=== PATIENT | female | born 1980 | race Caucasian/White ===

== ENCOUNTER 2020-06-11 22:17 | Emergency (ER) | payer OTHER ==
[~2020-06-11] VITALS: Ht 175.3 cm; Wt 113.4 kg
[~2020-06-11 22:17] MED LIST: AZELASTINE137 MCG/0. INH; LEVAQUIN500 MG PO; NORCO 7.5-3251 EACH PO; RHINOCORT AQUA INH; SINGULAIR10 MG PO; ZANTAC150 MG PO
--- OUTSIDE RECORDS SUMMARY | 2020-06-11 22:21 | XMS REPORT | Continuity of Care Document ---
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 6.4-8.2 N ALBUMIN (test code = ALB) 3.7 g/dL 3.4-5.0 N GLOBULIN (test code = GLOB) 4.5 gram/dL 2.7-4.2 H ALBUMIN/GLOBULIN RATIO (test code = A/G) 0.8 0.75-1.50 N CALCIUM (test code = CA) 9.0 mg/dL 8.5-10.1 N BILIRUBIN TOTAL (test code = BILT) 0.30 mg/dL 0.0-1.0 N SGOT/AST (test code = AST) 27 IUnit/L 15-37 N SGPT/ALT (test code = ALT) 39 IUnit/L 12-78 N ALKALINE PHOSPHATASE TOTAL (test code = ALKP) 85 IUnit/L 45-117 N Note change in reference range due to change in reagent. HCG SERUM [id number] 14:01:00* Test Item Value Reference Range Interpretation Comments HCG SERUM QUAL (test code = HCGQL) NEGATIVE NEGATIVE This HCGQL test is NOT applicable for MALE patients.Check with nurse about probable order error.If Tumor Marker Test needed, nurse should order test "HCGTU"(Test #550.05903) URINALYSIS [id number] 13:52:00* Test Item Value Reference Range Interpretation Comments UA COLOR (test code = COLU) YELLOW YELLOW UA APPEARANCE (test code = APPU) CLEAR CLEAR UA GLUCOSE DIPSTICK (test code = DGLUU) NEGATIVE mg/dL NEGATIVE UA BILIRUBIN DIPSTICK (test code = BILU) NEGATIVE mg/dL NEGATIVE UA KETONE DIPSTICK (test code = KETU) NEGATIVE mg/dL NEGATIVE UA SPECIFIC GRAVITY (test code = SGU) 1.025 1.001-1.035 UA BLOOD DIPSTICK (test code = REBA) 0.03 mg/dL (Trace) mg/dL NEGATI VE A UA PH DIPSTICK (test code = NILA) 5.0 5.0-8.0 UA PROTEIN DIPSTICK (test code = PROU) NEGATIVE mg/dL NEGATIVE UA UROBILINIOGEN DIPSTICK (test code = URO) Normal mg/dL NEGATIVE UA NITRITE DIPSTICK (test code = STEPHEN) NEGATIVE NEGATIVE UA LEUKOCYTE ESTERASE W REFLEX (test code = LEUUR) 75 Lee/uL (1+) Lee/uL NEGATIVE A UA WBC (test code = WBCU) 0-5 per HPF 0-5 UA RBC (test code = RBCU) 0-2 #/HPF 0-5 UA EPITHELIAL CELLS (test code = EPIU) MOD per HPF FEW UA BACTERIA (test code = BACU) FEW #/HPF NONE A UA MUCUS (test code = MUCU) FEW #/LPF FEW URINALYSIS [id number] 13:48:00* Test Item Value Reference Range Interpretation Comments UA COLOR (test code = COLU) YELLOW YELLOW UA APPEARANCE (test code = APPU) CLEAR CLEAR UA GLUCOSE DIPSTICK (test code = DGLUU) NEGATIVE mg/dL NEGATIVE UA BILIRUBIN DIPSTICK (test code = BILU) NEGATIVE mg/dL NEGATIVE UA KETONE DIPSTICK (test code = KETU) NEGATIVE mg/dL NEGATIVE UA SPECIFIC GRAVITY (test code = SGU) 1.025 1.001-1.035 UA BLOOD DIPSTICK (test code = REBA) 0.03 mg/dL (Trace) mg/dL NEGATI VE A UA PH DIPSTICK (test code = NILA) 5.0 5.0-8.0 UA PROTEIN DIPSTICK (test code = PROU) NEGATIVE mg/dL NEGATIVE UA UROBILINIOGEN DIPSTICK (test code = URO) Normal mg/dL NEGATIVE UA NITRITE DIPSTICK (test code = STEPHEN) NEGATIVE NEGATIVE UA LEUKOCYTE ESTERASE W REFLEX (test code = LEUUR) 75 Lee/uL (1+) Lee/uL NEGATIVE A UA WBC (test code = WBCU) per HPF 0-5 UA RBC (test code = RBCU) per HPF 0-5 UA EPITHELIAL CELLS (test code = EPIU) per HPF Few UA BACTERIA (test code = BACU) per HPF NONE URINALYSIS [id number] 13:48:00* Test Item Value Reference Range Interpretation Comments UA COLOR (test code = COLU) YELLOW YELLOW UA APPEARANCE (test code = APPU) CLEAR CLEAR UA GLUCOSE DIPSTICK (test code = DGLUU) NEGATIVE mg/dL NEGATIVE UA BILIRUBIN DIPSTICK (test code = BILU) NEGATIVE mg/dL NEGATIVE UA KETONE DIPSTICK (test code = KETU) NEGATIVE mg/dL NEGATIVE UA SPECIFIC GRAVITY (test code = SGU) 1.025 1.001-1.035 UA BLOOD DIPSTICK (test code = REBA) 0.03 mg/dL (Trace) mg/dL NEGATI VE A UA PH DIPSTICK (test code = NILA) 5.0 5.0-8.0 UA PROTEIN DIPSTICK (test code = PROU) NEGATIVE mg/dL NEGATIVE UA UROBILINIOGEN DIPSTICK (test code = URO) Normal mg/dL NEGATIVE UA NITRITE DIPSTICK (test code = STEPHEN) NEGATIVE NEGATIVE UA LEUKOCYTE ESTERASE W REFLEX (test code = LEUUR) 75 Lee/uL (1+) Lee/uL NEGATIVE A UA WBC (test code = WBCU) per HPF 0-5 UA RBC (test code = RBCU) per HPF 0-5 UA EPITHELIAL CELLS (test code = EPIU) per HPF Few UA BACTERIA (test code = BACU) per HPF NONE COMPREHENSIVE METABOLIC [id number] 13:44:00* Test Item Value Reference Range Interpretation Comments SODIUM (test code = NA) 139 mmol/L 136-145 N POTASSIUM (test code = K) 3.5 mmol/L 3.5-5.1 N CHLORIDE (test code = CL) 107.0 mmol/L 98-107 N CARBON DIOXIDE (test code = CO2) mmol/L 21-32 ANION GAP (test code = GAP) 10-20 GLUCOSE (test code = GLU) mg/dL 74-106 BLOOD UREA NITROGEN (test code = BUN) mg/dL 7-18 GLOMERULAR FILTRATION RATE (test code = GFR) mL/min >=60 CREATININE (test code = CREAT) mg/dL 0.55-1.02 BUN/CREATININE RATIO (test code = BUN/CREA) 10-20 TOTAL PROTEIN (test code = PROT) gram/dL 6.4-8.2 ALBUMIN (test code = ALB) g/dL 3.4-5.0 GLOBULIN (test code = GLOB) gram/dL 2.7-4.2 ALBUMIN/GLOBULIN RATIO (test code = A/G) 0.75-1.50 CALCIUM (test code = CA) mg/dL 8.5-10.1 BILIRUBIN TOTAL (test code = BILT) mg/dL 0.0-1.0 SGOT/AST (test code = AST) IUnit/L 15-37 SGPT/ALT (test code = ALT) IUnit/L 12-78 ALKALINE PHOSPHATASE TOTAL (test code = ALKP) IUnit/L 45-117 HCG SERUM [id number] 13:44:00* Test Item Value Reference Range Interpretation Comments HCG SERUM QUAL (test code = HCGQL) NEGATIVE COMPREHENSIVE METABOLIC [id number] 13:44:00* Test Item Value Reference Range Interpretation Comments SODIUM (test code = NA) 139 mmol/L 136-145 N POTASSIUM (test code = K) 3.5 mmol/L 3.5-5.1 N CHLORIDE (test code = CL) 107.0 mmol/L 98-107 N CARBON DIOXIDE (test code = CO2) mmol/L 21-32 ANION GAP (test code = GAP) 10-20 GLUCOSE (test code = GLU) mg/dL 74-106 BLOOD UREA NITROGEN (test code = BUN) mg/dL 7-18 GLOMERULAR FILTRATION RATE (test code = GFR) mL/min >=60 CREATININE (test code = CREAT) mg/dL 0.55-1.02 BUN/CREATININE RATIO (test code = BUN/CREA) 10-20 TOTAL PROTEIN (test code = PROT) gram/dL 6.4-8.2 ALBUMIN (test code = ALB) g/dL 3.4-5.0 GLOBULIN (test code = GLOB) gram/dL 2.7-4.2 ALBUMIN/GLOBULIN RATIO (test code = A/G) 0.75-1.50 CALCIUM (test code = CA) mg/dL 8.5-10.1 BILIRUBIN TOTAL (test code = BILT) mg/dL 0.0-1.0 SGOT/AST (test code = AST) IUnit/L 15-37 SGPT/ALT (test code = ALT) IUnit/L 12-78 ALKALINE PHOSPHATASE TOTAL (test code = ALKP) IUnit/L 45-117 HCG SERUM [id number] 13:44:00* Test Item Value Reference Range Interpretation Comments HCG SERUM QUAL (test code = HCGQL) NEGATIVE NEGATIVE This HCGQL test is NOT applicable for MALE patients.Check with nurse about probable order error.If Tumor Marker Test needed, nurse should order test "HCGTU"(Test #550.09176) CBC W/AUTO [id number] 13:22:00* Test Item Value Reference Range Interpretation Comments WHITE BLOOD CELL (test code = WBC) 9.2 K/mm3 4.5-12.5 N RED BLOOD CELL (test code = RBC) 4.76 mill/mm3 3.7-5.2 N HEMOGLOBIN (test code = HGB) 12.2 gram/dL 11.5-15.5 N HEMATOCRIT (test code = HCT) 39.9 % 36.0-46.0 N MEAN CELL VOLUME (test code = MCV) 83.8 fL 80-98 N MEAN CELL HGB (test code = MCH) 25.6 picogram 27.0-33.0 L MEAN CELL HGB CONCETRATION (test code = MCHC) 30.6 gram/dL 33.0-36. 0 L RED CELL DISTRIBUTION WIDTH (test code = RDW) 13.9 % 11.6-16. 2 N RED CELL DISTRIBUTION WIDTH SD (test code = RDW-SD) 42.4 fL 37 .0-51.0 N PLATELET COUNT (test code = PLT) 360 K/mm3 150-450 N MEAN PLATELET VOLUME (test code = MPV) 10.0 fL 6.7-11.0 N NEUTROPHIL % (test code = NT%) 66.0 % 39.0-69.0 N IMMATURE GRANULOCYTE % (test code = IG%) 0.3 % 0.0-5.0 N LYMPHOCYTE % (test code = LY%) 22.5 % 25.0-55.0 L MONOCYTE % (test code = MO%) 8.7 % 0.0-10.0 N EOSINOPHIL % (test code = EO%) 2.3 % 0.0-5.0 N BASOPHIL % (test code = BA%) 0.2 % 0.0-1.0 N NUCLEATED RBC % (test code = NRBC%) 0.0 % 0-0 N NEUTROPHIL # (test code = NT#) 6.10 K/mm3 1.8-7.7 N IMMATURE GRANULOCYTE # (test code = IG#) 0.03 x10 3/uL 0-0.03 N LYMPHOCYTE # (test code = LY#) 2.08 K/mm3 1.0-5.0 N MONOCYTE # (test code = MO#) 0.80 K/mm3 0-0.8 N EOSINOPHIL # (test code = EO#) 0.21 K/mm3 0.0-0.5 N BASOPHIL # (test code = BA#) 0.02 K/mm3 0.0-0.2 N NUCLEATED RBC # (test code = NRBC#) 0.00 K/mm3 0.0-0.1 N MANUAL DIFF REQUIRED (test code = MDIFF) NO CBC W/AUTO [id number] 13:17:00* Test Item Value Reference Range Interpretation Comments WHITE BLOOD CELL (test code = WBC) K/mm3 4.5-12.5 RED BLOOD CELL (test code = RBC) mill/mm3 3.7-5.2 HEMOGLOBIN (test code = HGB) 12.2 gram/dL 11.5-15.5 N HEMATOCRIT (test code = HCT) 39.9 % 36.0-46.0 N MEAN CELL VOLUME (test code = MCV) fL 80-98 MEAN CELL HGB (test code = MCH) picogram 27.0-33.0 MEAN CELL HGB CONCETRATION (test code = MCHC) gram/dL 33.0-36. 0 RED CELL DISTRIBUTION WIDTH (test code = RDW) % 11.6-16. 2 RED CELL DISTRIBUTION WIDTH SD (test code = RDW-SD) fL 37 .0-51.0 PLATELET COUNT (test code = PLT) K/mm3 150-450 MEAN PLATELET VOLUME (test code = MPV) fL 6.7-11.0 NEUTROPHIL % (test code = NT%) % 39.0-69.0 IMMATURE GRANULOCYTE % (test code = IG%) % 0.0-5.0 LYMPHOCYTE % (test code = LY%) % 25.0-55.0 MONOCYTE % (test code = MO%) % 0.0-10.0 EOSINOPHIL % (test code = EO%) % 0.0-5.0 BASOPHIL % (test code = BA%) % 0.0-1.0 NEUTROPHIL # (test code = NT#) K/mm3 1.8-7.7 LYMPHOCYTE # (test code = LY#) K/mm3 1.0-5.0 MONOCYTE # (test code = MO#) K/mm3 0-0.8 EOSINOPHIL # (test code = EO#) K/mm3 0.0-0.5 BASOPHIL # (test code = BA#) K/mm3 0.0-0.2 - XR CHEST 2 [id number] 12:31:00 FAX: Sandhya Rand MD [phone] Park[place]: O St: PRE Name: KEVYN OBREGON [facility] : [birth year] Age/S: 38/F [address] Unit #: [id number] [facility] [place] [address] Phys: Sandhya Simeon MD Acct: [id number] Dis Date: Status: PRE SDC PHONE #: [phone] Exam Date: 01/12/2019 1220 FAX #: [phone] Reason: PRE OP EXAMS: CPT CODE: [id number] XR CHEST 2 V 48767 HISTORY: Preop. COMP ARISON: None available. AP and lateral view of the chest: No acute infiltrates, effusion or congestion. Cardiac and the medias tinal silhouette are normal. DJD of the dorsal spine. IMPRESSION : No acute infiltrates, effusion or congestion. El ectronically Signed by Bhumika Hampton on 01/12/2019 at 1231 Reported and signed by: Darwin Hamptno M.D. CC: Sandhya Simeon MD Technologist: CLIVE MATHIS RT (R) Trnscrd Date/Time/By: 01/12/2019 ( 1231) : By: [email or web address] Orig Print D/T: S: 01/12/2019 (1235) PAGE 1 Signed Report [id number] 10:04:00Negative (12/30/13 5:04 AM)[facility] [id number] 09:40:0097[facility] HGFZR8016-01-15 09:40:005[facility] ESHRL1291-61-94 09:40:003.9[facility] IURIC4712-74-88 09:40:25617Lzkroxyw [facility]annCHE[facility] EYJGZ7749-48-18 09:40:000.8[facility] UKWVB0148-89-96 09:40:03921Eyhdbnms [facility]ann[facility] OYNEE0324-92-46 09:40:0024 [facility] VGBLZ2933-12-43 09:40:008.0[facility] PANEL 2013-12-28 09:40:0013.9[facility] PGCYN2409-01-59 09:40:34325Wiquumpg MlgrjzrXHBDJUESKF6584-16-43 09:40:0012.2[facility] MzilerpMLGVMQEZQK5366-75-91 09:40:0089.3[facility] DcnxbpqSVBHLQGBBA4054-55-42 09:40:0035.6[facility] TBJIXCTDZQ8890-14-36 09:40:0010.1[facility] SjqbdyiLXGLKNPYKT3484-52-25 09:40:00 3.99[facility] VjgirmqBZKLGOVWSS5503-88-77 09:40:008.0[facility]ann[facility]MATOLOGY 2013-12-28 09:40:0013.9[facility] AjvwmzoQEBLHHJLFW3633-85-94 09:40:95967Wlzyakxi GbwcokqKLBEYBTTLD9804-49-54 09:40:0034.2[facility] OlecgsgVPYUOHFJHA5330-09-21 09:40:00* Test Item Value Reference Range Interpretation Comments MCH (test code = MCH) 30.5 pg 27.0-31.0 [facility] QcdyafaODSMCJCYKT1314-32-13 09:40:0017.3[facility] 2013-12-28 09:40:0074.3[facility] MbddolzFKSFTSJUJL8674-82-43 09:40:000.1[facility] KgxsvroLBKJMVHSIH7556-08-88 09:40:000.3[facility] RrvjedaISUXMYYOKR0122-43-22 09:40:000.7[facility] NitbdpvZTXKPCEOAT6262-41-80 09:40:001.8[facility] WTXKWDTADI6260-08-57 09:40:007.5[facility] ByoxotfHWPYAEDFLB2546-04-76 09:40:000.7 [facility] TnxzyilSJPQGENPQV9839-24-56 09:40:007.4[facility] JQUEKPQ2805-20-48 19:30:00Negative (12/27/13 2:30 PM)[facility] HermannHEMATOLOGY 2013-12-27 17:50:47* Test Item Value Reference Range Interpretation Comments PTT (test code = PTT) 33.1 s 22.9-35.8 [facility] SjvisflLBJUTBHISD6785-34-55 17:50:47* Test Item Value Reference Range Interpretation Comments PT (test code = PT) 13.7 s 12.0-14.7 [facility] DuyezpoRFCVSQJDKU9361-13-64 17:50:471.06[facility]annELECTROLYTES 2013-12-27 17:50:0016.3[facility] BvrrwwiNFZNJUMGXVXU9434-68-82 17:50:0097[facility] AgdvaprBPJEJCRLXDVX3777-62-53 17:50:000.8[facility] RvvhilhTMOOYVYVBSOS3355-93-08 17:50:003.3[facility] IkllsymHIDAHOYXALRB4634-17-61 17:50:49551Swqfzexh [place] DBDRADIOHMSD2414-04-17 17:50:54881Hljzciqo JgsuohjHLCXPLAVCYNQ4386-47-14 17:50:008[facility] FcuhxipCORJLUAZZMCI8458-79-68 17:50:009.0[facility] [place] TBKSWTFJSWUS7580-20-22 17:50:0021[facility] WbphsosDEQERNFFDFEL3743-58-93 17:50:00 102[facility] GgqejnwQDUFOQRLYO3644-76-03 17:50:00* Test Item Value Reference Range Interpretation Comments MCH (test code = MCH) 29.9 pg 27.0-31.0 [facility] UohmfqdRWMCQVOGZQ1352-32-34 17:50:0034.3[facility]annHEMATOLOGY 2013-12-27 17:50:0015.4[facility] WiwpoxtUJNITIGDBB3711-06-62 17:50:008.2[facility] HnqzhjdKYFPYTWHID8267-16-33 17:50:20881Solbiebs BhelykpYJYGEMAYSD0881-49-44 17:50:0013.0[facility] HutluxlVERHZXWFYE8532-97-62 17:50:004.59[facility] TGNPOJOPAX6674-37-90 17:50:0087.2[facility] JcfapvnVNCUGLDTCZ9249-36-02 17:50:00 13.8[facility] ZqfbmxxGNZIYZUXMT5292-46-00 17:50:0040.0[facility]annHEMATOLOGY 2013-12-27 17:50:006.9[facility] NjrwpxjPGHTMJTDKE8062-73-62 17:50:000.0[facility] IiecgfjNORCEVDZED4094-04-60 17:50:000.4[facility] OjojkwiVIUDVRZMJD2651-59-15 17:50:001.1[facility] SzbwbzcAZLKLLQZBA5862-37-27 17:50:003.7[facility] IVGOYXBOCS3934-42-13 17:50:0010.2[facility] WkzwiggGRLCHPGDRD2766-33-90 17:50:00 2.4[facility] JpyzoczXNEOVHFFTY9908-58-68 17:50:000.2[facility]annHEMATOLOGY 2013-12-27 17:50:00Slight *ABN*(12/27/13 12:50 PM)[facility] HermannHEMATOLOGY 2013-12-27 17:50:00Present *ABN*(12/27/13 12:50 PM)[facility] HermannHEMATOLOGY 2013-12-27 17:50:00Slight (12/27/13 12:50 PM)[facility] JvxfbedJABTSMWPGI4988-96-90 17:50:0066.5[facility] OqosbqfMRIYXPDDKP8943-26-33 17:50:00Normal (12/27/13 12:50 PM)[facility] HiksoldAIALEXNZEB8714-21-54 17:50:0024.0[facility]annCHEMISTRY 2011-05-21 11:12:00Negative (05/21/2011 06:12:00) ??[facility]
--- OUTSIDE RECORDS SUMMARY | 2020-06-11 22:21 | XMS REPORT | Clinical Summary ---
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 Active albuterol (PROAIR HFA) 90 Inhale 2 0 01/30 mcg/actuation inhaler puffs. 0 Active omeprazole (PriLOSEC) 40 Take 40 mg by 0 MG capsule mouth daily. Active cetirizine (ZyrTEC) 10 MG Take 10 mg by 0 tablet mouth daily. 03/10/2021 Active meloxicam (Mobic) 15 mg Take 1 tablet 30 tablet 1 tablet (15 mg total) 0 by mouth daily. Active Problems No known active problems Encounters Care Team Description Date Type Specialty Leonides Ferrell MD Acute right ankle pain (Primary Dx); Right knee pain, unspecified chronicity 03/10/2020 Office Visit Orthopedic Surgery 03/10/2020 Travel after 06/11/2019 Surgical History Surgery Date Site/Laterality Comments ABDOMINAL SURGERY 2017 ORTHOPEDIC SURGERY 2013 ORIF ankle right BARIATRIC SURGERY 2013 Medical History Medical History Date Comments Asthma Family History Relation Name Status Comments Father Alive Mother Alive Other children Alive Social History Date Tobacco Use Types Packs/Day Years Used Never Smoker Smokeless Tobacco: Never Used Drinks/Week oz/Week Comments Alcohol Use Yes Sex Assigned at Date Recorded Not on file Last Filed Vital Signs Reading Time Taken Comments Vital Sign - - Blood Pressure - - Pulse - - Temperature - - Respiratory Rate - - Oxygen Saturation - - Inhaled Oxygen Concentration 118 kg (260 lb) 03/10/2020 4:02 PM CDT Weight 175.3 cm (5' 9") 03/10/2020 4:02 PM CDT Height 38.4 03/10/2020 4:02 PM CDT Body Mass Index Plan of Treatment Health Maintenance Due Date Last Done Comments CERVICAL CANCER SCREENING 02/09/2001 INFLUENZA VACCINE 03/01/2020 Procedures Comments Procedure Name Priority Date/Time Associated Diag nosis XR ANKLE 3+ VW RIGHT Routine 03/10/2020 Acute rig ht ankle pain 4:18 PM CDT after 06/11/2019 Results * XR Ankle 3+ Vw Right (03/10/2020 4:18 PM CDT) Specimen Narrative Performed At [facility] Views of the right ankle show significa nt hardware in place. The joint space appears to be very well preserved now 4 years out from the surgery. There is some bone spur formation in th e lateral gutter and there is an anterior spur from the dorsal talus. 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
--- OUTSIDE RECORDS SUMMARY | 2020-06-11 22:21 | XMS REPORT | Continuity of Care Document ---
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 displaced posterior malleolar fragment measuring approximately 5 cm with 25 of anterior angulation is noted. A displaced medial malleolar fragment measuring approximately 3 cm is observed with 35 apex medial angulation. Several bony fragments are visible between the tibial shaft and the described posterior and medial fragments. The talar dome appears intact. There is disruption of both the medial lateral clear spaces as well as the tibiofibular syndesmosis. The remaining bones of the foot are within normal limits. Diffuse soft tissue swelling is observed surrounding the right ankle and foot. IMPRESSION: 1. Comminuted impacted pilon and trimall eolar fractures of the right ankle. Recommend preoperative CT study of the right ankle for further evaluation. 2. Mildly displaced transverse fracture of the distal right fibular shaft. 3. Mildly displaced fracture along the a nterior aspect of the right fibular head. 4. Generalized soft tissue swelling surr ounding the right lower leg and foot. 12/27/2013 [facility] Foot series EXAM: XR RIGHT KNE E 3 VIEWS EXAM: XR RIGHT TIBIA FIBULA 2 VIEWS EXAM: XR RIGHT ANKLE 3 VIEWS EXAM: XR RIGHT FOOT 3 VIEWS DATE: 12/27/2013 at 1311 hours. INDICATION: Pain following trauma. COMPARISON: None available. TECHNIQUE: AP, lateral and oblique radiographs of the right knee, ankle, and foot. AP and lateral radiographs of the right tibia and fibula. DISCUSSION: A mildly displaced fracture along the anterior aspect of the fibular head is observed that involves the articular surface with the tibiofibular joint. A mildly displaced fracture of the distal fibular shaft is observed that displays apex anterior angulation of 20 and apex medial angulation of 20. A small focus of ossification is noted inferior to the lateral malleolus which appears well-corticated. A comminuted impacted pilon fracture of the distal right tibia is observed. A displaced posterior malleolar fragment measuring approximately 5 cm with 25 of anterior angulation is noted. A displaced medial malleolar fragment measuring approximately 3 cm is observed with 35 apex medial angulation. Several bony fragments are visible between the tibial shaft and the described posterior and medial fragments. The talar dome appears intact. There is disruption of both the medial lateral clear spaces as well as the tibiofibular syndesmosis. The remaining bones of the foot are within normal limits. Diffuse soft tissue swelling is observed surrounding the right ankle and foot. IMPRESSION: 1. Comminuted impacted pilon and trimall eolar fractures of the right ankle. Recommend preoperative CT study of the right ankle for further evaluation. 2. Mildly displaced transverse fracture of the distal right fibular shaft. 3. Mildly displaced fracture along the a nterior aspect of the right fibular head. 4. Generalized soft tissue swelling surr ounding the right lower leg and foot. 12/27/2013 [facility] Knee 3 views EXAM: XR RIGHT KN EE 3 VIEWS EXAM: XR RIGHT TIBIA FIBULA 2 VIEWS EXAM: XR RIGHT ANKLE 3 VIEWS EXAM: XR RIGHT FOOT 3 VIEWS DATE: 12/27/2013 at 1311 hours. INDICATION: Pain following trauma. COMPARISON: None available. TECHNIQUE: AP, lateral and oblique radiographs of the right knee, ankle, and foot. AP and lateral radiographs of the right tibia and fibula. DISCUSSION: A mildly displaced fracture along the anterior aspect of the fibular head is observed that involves the articular surface with the tibiofibular joint. A mildly displaced fracture of the distal fibular shaft is observed that displays apex anterior angulation of 20 and apex medial angulation of 20. A small focus of ossification is noted inferior to the lateral malleolus which appears well-corticated. A comminuted impacted pilon fracture of the distal right tibia is observed. A displaced posterior malleolar fragment measuring approximately 5 cm with 25 of anterior angulation is noted. A displaced medial malleolar fragment measuring approximately 3 cm is observed with 35 apex medial angulation. Several bony fragments are visible between the tibial shaft and the described posterior and medial fragments. The talar dome appears intact. There is disruption of both the medial lateral clear spaces as well as the tibiofibular syndesmosis. The remaining bones of the foot are within normal limits. Diffuse soft tissue swelling is observed surrounding the right ankle and foot. IMPRESSION: 1. Comminuted impacted pilon and trimall eolar fractures of the right ankle. Recommend preoperative CT study of the right ankle for further evaluation. 2. Mildly displaced transverse fracture of the distal right fibular shaft. 3. Mildly displaced fracture along the a nterior aspect of the right fibular head. 4. Generalized soft tissue swelling surr ounding the right lower leg and foot. 12/27/2013 [facility] Consultation Notes No Data Provided for This Section Discharge Summaries No Data Provided for This Section History and Physicals No Data Provided for This Section Vital Signs Vital Sign Value Date Comments Source Temperature Oral (F) 98.1 F 01/01/2014 [facility] Respitory Rate 18 01/01/2014 [facility] Heart Rate 89 01/01/2014 [facility] Systolic (mm Hg) 146 01/01/2014 [facility] Diastolic (mm Hg) 91 01/01/2014 [facility] Temperature Oral (F) 97.5 F 01/01/2014 [facility] Respitory Rate 18 01/01/2014 [facility] Heart Rate 69 01/01/2014 [facility] Systolic (mm Hg) 148 01/01/2014 [facility] Diastolic (mm Hg) 91 01/01/2014 [facility] Systolic (mm Hg) 152 01/01/2014 [facility] Heart Rate 82 01/01/2014 [facility] Diastolic (mm Hg) 95 01/01/2014 [facility] Respitory Rate 18 01/01/2014 [facility] Temperature Oral (F) 98.2 F 01/01/2014 [facility] Height 175.26 cm 12/28/2013 [facility] BMI Calculated 42.91 12/28/2013 [facility] Weight 131.818 12/28/2013 [facility] Height 175.26 cm 12/27/2013 [facility] BMI Calculated 42.91 12/27/2013 [facility] Weight 131.818 12/27/2013 [facility] Heart Rate 84.0 05/21/2011 [facility] Respitory Rate 16.0 05/21/2011 [facility] Systolic (mm Hg) 151.0 05/21/2011 [facility] Diastolic (mm Hg) 80.0 05/21/2011 [facility] Respitory Rate 17.0 05/21/2011 [facility] Systolic (mm Hg) 116.0 05/21/2011 [facility] Diastolic (mm Hg) 58.0 05/21/2011 [facility] Respitory Rate 15.0 05/21/2011 [facility] Diastolic (mm Hg) 65.0 05/21/2011 [facility] Systolic (mm Hg) 122.0 05/21/2011 [facility] Weight 125.455 05/19/2011 [facility] Height 175.26 cm 05/19/2011 [facility] Encounters Location Location Details Encounter Type Encounter Number Reason For Visit Attending Provider ADM Date DC Date Status Source [facility] DS [id number] POLYP SINUS, RAT TRAPPER JUANITO MAXILLARY SINUSITIS, CHRONIC FRONT RACHAEL CITARDI 05/21/2011 Active [facility] Inpatient [id number] Jonn Chu 12/27/2013 01/01/2014 [facility] Procedures No Data Provided for This Section Assessment and Plan Assessment and Plan Date Source Extracted from:Title: Ortho Progress Not e Author: Wilbert Hale MD Date: 12/31/13 Progress Note - Daily SUBJECTIVE Pain under control. No new issues. OBJECTIVE Vitals Tmp(F) Pulse BP RR SpO2 FIO2 12/31 16:50 98.1 96 149/107 18 98 --- 12/31 11:44 98.0 82 156/103 18 99 --- 12/31 08:06 98.0 74 152/94 1 8 98 --- 06 04:58 98.5 70 149/95 1 8 97 21% 12/31 00:09 98.2 85 152/88 2 0 97 21% 24 Hr Tmax: 99.2F (37.33c) at 12/30 20:5 5 Vital Signs are the last 5 in the past 48 hours. Date Wt(kg) Wt(lb) Ht(cm) Ht(in) Method 12/27 (initial) 131.82 290.00 175.26 69.00 Stated I&O Record In Out Bal 12/31 24hr Tot 850 500 350 12/30 24hr Tot 1530 2050 -520 Medications (12) Active Scheduled Meds (3): 12/29/13 acetaminophen-hydrocodone (Norc o 10/325 oral tablet) 1 tab PO Q4H 12/27/13 enoxaparin 30 mg SUB-Q [id number] 12/29/13 methocarbamol (Robaxin) 500 mg PO TID Unscheduled Meds: None PRN Meds (8): 12/29/13 acetaminophen-hydrocodone (Norc o 10/325 oral tablet) 1 tab PO Q4H 12/28/13 albuterol-ipratropium (albutero l-ipratropium CFC free 100 mcg-20 mcg/inh inhalation aerosol) 1 puff INHALER RQID 12/27/13 bisacodyl 10 mg PO Q24H 12/27/13 diphenhydrAMINE 25 mg PO Q6H 12/27/13 docusate 100 mg PO BID 12/29/13 hydromorphone (Dilaudid) 1 mg I V Q3H 12/28/13 naloxone 0.04 mg IVP Q2MIN 12/27/13 promethazine 12.5 mg IVPB Q4H One Time Meds: None Continuous Infusions (1): 12/28/13 Lactated Ringers Injection IV 1 ,000 mL (Lactated Ringers IV 1,000 mL) 1,000 mL 30 ml/hr EXAM Awake, alert, oriented, NAD SILT sp/dp. Sensation intact but diminished tib N. 2+ DP, WWP foot RLE ex-fix/dressing c/d/i + swelling of foot. compartments elio sible Assesment - 33F POD 4 s/p Ex-fix R pilon Plan: 1. Activity: Non-wt bearing RLE. Strict elevation. Mobilize with PT 2. Antibiotics: none 3. DVT Prophylaxis: Lovenox 4. Pain control: controlled with po medi cation 5. Procedures/further interventions: Jesus gaytan require definitive ORIF as an outpatient due to severe soft tissue swelling. Mobilize with PT. D/C home tomorrow when PT clears. 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
[2020-06-11] MEDS ORDERED: CARBAMAZEPINE200 MG PO ×2 (23:16→23:20)
[2020-06-11 23:29] VITALS: BP 159/89
--- NOTE | 2020-06-11 23:46 | Emergency Department Note ---
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 Last time took BP before that was earlier this year at [facility] and was 180's/90's. Took BP tonight due to having headache. Patient has had recurrent headaches since Mar. Several times a day. No pattern to time of day (night and daytime). Headache right sided over nondenominational and comes on like "lightening" and spreads forward towards face. Lasts seconds to minutes. No prior hx of HTN or headaches. No photophobia/phonophobia. No numbness, tingling, weakness. No loss of bowel/bladder function. No slurred speech or problems finding words. Had botox for first time 2 weeks ago which did not improve or worsen headaches. No one has told patient she grinds teeth at night. 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 Onset (how long ago): month(s) Location: Right nondenominational Quality: "lightening" Onset quality: sudden Timing of current episode: sporadic Progression: waxing and waning Chronicity: recurrent Relieving factors: none Exacerbating factors: other (touching scalp above right ear) Associated symptoms: Reports headaches; Denies confusion, Denies chest pain, Denies cough, Denies diaphoresis, Denies fever/chills, Denies loss of appetite, Denies malaise, Denies nausea/vomiting, Denies rash, Denies seizure, Denies shortness of breath Treatments prior to arrival: none Past Medical/Family History Physician Review I have reviewed the patient's past medical and family history. Any updates have been documented here. Past Medical History Recent Fever: No Clinical Suspicion of Infectio: No New/Unexplained Change in Ment: No Other Medical History: INDIGESTION SEASONAL ALLERGIES GALL STONES Past Surgical History: Cholecysctectomy Social History Any Illegal Drug Use: No Family History Other family history Mom and dad both with HTN Review of Systems Review of Systems Constitutional: Denies chills, Denies fever EENTM: Denies throat pain Cardiovascular: Denies chest pain, Denies syncope Respiratory: Denies cough, Denies dyspnea Gastrointestinal: Denies diarrhea, Denies nausea, Denies vomiting Genitourinary: Denies dysuria Musculoskeletal: Denies joint pain Integumentary: Denies rash Neurological: Reports headache; Denies numbness, Denies paresthesia, Denies seizure, Denies tingling, Denies tremors, Denies weakness Endocrine: Denies increased thirst, Denies increased urination Hematological/Lymphatic: Denies easy bleeding, Denies easy bruising, Denies swollen glands Physical Exam Related Data Allergies: Coded Allergies: codeine (Verified Allergy, Intermediate, rash, 08/02/16) NSAIDS (Non-Steroidal Anti-Inflamma (Verified Allergy, Unknown, 11/11/10) Penicillins (Verified Allergy, Unknown, 11/12/10) aspirin (Verified Allergy, Unknown, 11/11/10) azithromycin (Verified Allergy, Unknown, 11/11/10) Physical Exam CONSTITUTIONAL Constitutional: Present well-developed, Present well-nourished HENT HENT: Present normocephalic, Present atraumatic, Present oropharynx clear/moist, Present nose normal HENT L/R: Present left TM normal, Present right TM normal, Present left canal normal, Present right canal normal, Present left ext ear normal, Present right ext ear normal EYES Eyes: Reports PERRL, Reports conjunctivae normal, Reports EOM normal, Reports lids normal; Denies left eye discharge, Denies right eye discharge, Denies scleral icterus NECK Neck: Present ROM normal; Absent cervical adenopathy PULMONARY Pulmonary: Present effort normal, Present breath sounds normal; Absent respiratory distress CARDIOVASCULAR Cardiovascular: Present regular rhythm, Present heart sounds normal, Present capillary refill normal, Present normal rate GASTROINTESTINAL Abdominal: Present soft, Present nontender, Present bowel sounds normal GENITOURINARY Genitourinary: Present exam deferred SKIN Skin: Present warm, Present dry MUSCULOSKELETAL Musculoskeletal: Present ROM normal NEUROLOGICAL Neurological: Present alert, Present oriented x 3, Present DTRs normal, Present no gross motor or sensory deficits, Present other (negative rhomburg, normal [id number]. No mass palpated over right nondenominational. Headace reproduced with palpating parietal scalp just above right ear. No masses, fluctuance, erythema, discharge.); Absent cranial nerve deficit, Absent sensory deficit, Absent abnormal DTRs, Absent abnormal coordination, Absent abnormal gait, Absent weakness PSYCHOLOGICAL Psychological: Present mood/affect normal, Present judgement normal Assessment & Plan Medical Decision Making MDM Differential dx includes, but not limited to: trigeminal neuralgia, otitis media, otitis externa, SAH, TMJ, temporal arteritis, migraine ROB, tension ROB, cluster ROB, SDH, epidural. Normal neuro exam. Given patient describes symptoms typical for trigeminal neuralgia will start patient on carbamazepine and f/u promptly with PCP for outpatient MRI and workup. Gave patient strict return precautions including neurological symptoms. Assessment & Plan Final Impression: (1) Headache (2) Trigeminal neuralgia of right side of face Depart Disposition: HOME, SELF-assisted Meds Active Scripts Carbamazepine (CARBAMAZEPINE) 200 Mg Tablet, 100 MG PO BID, #30 TAB Prov:KRISTYN BAENRJEE MD 06/11/20 Reported Medications Levofloxacin (LEVAQUIN) 500 Mg Tablet, 500 MG PO DAILY, #5 TAB 08/04/16 Hydrocodone Bit/Acetaminophen (NORCO 7.5-325 TABLET) 1 Each Tablet, 1 EA PO Q4HR PRN for PAIN, #20 TAB 08/04/16 Budesonide (RHINOCORT AQUA) 1 [place], 2 SPRAYS INH BID 08/02/16 Azelastine Hcl (AZELASTINE HCL) 137 Mcg/0.137 Ml [place].pump, 2 SPRAYS INH BID 08/02/16 Ranitidine Hcl (ZANTAC) 150 Mg Tablet, 150 MG PO DAILY THERAPEUTICALLY SUBSTITUTED WITH PEPCID 20MG 08/02/16 Montelukast Sodium (SINGULAIR) 10 Mg Tablet, 10 MG PO DAILY 08/02/16 KRISTYN BANERJEE MD Jun 11, 2020 23:46
== END 2020-06-11 23:36 | disposition home or self-care (01) ==
LOC: FSED 22:19
DX: R51.9 Headache, unspecified (principal); G50.0 Trigeminal neuralgia
CPT/HCPCS: 99282